=== PATIENT | female | born 1955 | race Caucasian/White ===

== ENCOUNTER 2016-12-02 11:24 | Emergency (ER) | payer OTHER ==
[~2016-12-02] VITALS: Ht 152.4 cm; Wt 76.2 kg
--- NOTE | 2016-12-02 13:04 | RADIOLOGY REPORT ---
EXAMINATION: XR CHEST CLINICAL INFORMATION: 61-year-old woman with cough. COMPARISON: 03/16/2016 chest radiograph TECHNIQUE: 2 views of the chest were obtained. FINDINGS: No significant abnormality is noted involving the heart, lungs, mediastinum, bony thorax or soft tissues. IMPRESSION: Unremarkable examination.
--- NOTE | 2016-12-02 13:07 | ED DYSPNEA/ASTHMA COMPLAINT ---
History of Present Illness General Chief Complaint: Upper Respiratory Sx/Fever Stated Complaint: URI Source: patient, family Exam Limitations: language barrier Vital Signs & Intake/Output Vital Signs & Intake/Output Vital Signs Date Time Temp Pulse Resp B/P Pulse O2 O2 Flow FiO2 Ox Delivery Rate 12/02 1414 95.6 68 16 141/81 95 Room Air 12/02 1338 98 12/02 1335 Room Air 12/02 1141 98.4 64 22 145/84 98 Room Air Allergies Coded Allergies: NO KNOWN ALLERGIES (05/16/12) Reconcile Medications Albuterol Sulfate 2.5 MG/3 ML (0.083 %) VIAL.NEB 1 Vial INH/GREICA Q4P PRN WHEEZING/SHORTNESS OF BREATH Prednisone 10 MG TABLET 0 PO DAILY bronchospasm dAY 1 50MG PO QD, THEN DECREASE BY 10MG DAILY FOR 5 DAYS Triage Note: PT TO ER WITH FAMILY C/C 4 DAY HX OF PRODUCTIVE COUGH AND SOB. USING INHALER W/O RELIEF. SENT FROM [facility] TO R/O PNA. Triage Nurses Notes Reviewed? yes HPI: Patient is a 61-year-old female presents complaining of cough with sputum production, wheezing, shortness of breath, body aches. Symptoms onset approximately 4 days ago. Patient was seen at the [facility] and was prescribed Tamiflu, cough medication, and albuterol inhaler. Patient has been taking these medications along with NyQuil and Advil with minimal improvement. Patient takes 7 mg of prednisone daily for her rheumatoid arthritis, for the past 3 days has been taking 10 mg of prednisone. Cough with brown sputum production. Body aches and generalized weakness or severe. Patient had fevers yesterday and the day before, no fevers today. Denies chest pain, vomiting. (CARMELA GIL) Past History Travel History Traveled to [place] past 21 day No Medical History Any Pertinent Medical History? see below for history Cardiovascular: NONE Gastrointestinal: GERD Musculoskeletal: rheumatoid arthritis Endocrine: hypothyroidism Surgical History Surgical History: non-contributory Psychosocial History What is your primary language Stateless Tobacco Use: Never used Family History Hx Contributory? No (CARMELA GIL) Review of Systems Review of Systems Constitutional: Reports: chills, fever, malaise, weakness. EENTM: Reports: no symptoms. Respiratory: Reports: cough, short of breath, sputum production, wheezing. Cardiovascular: Denies: chest pain. GI: Denies: abdominal pain, vomiting. Genitourinary: Reports: no symptoms. Musculoskeletal: Reports: joint pain, muscle pain. Skin: Reports: no symptoms. Neurological/Psychological: Reports: no symptoms. Hematologic/Endocrine: Reports: no symptoms. Immunologic/Allergic: Reports: no symptoms. (CARMELA GIL) Physical Exam Physical Exam General Appearance: well developed/nourished, alert, awake Head: atraumatic, normal appearance Eyes: Bilateral: normal appearance, PERRL, EOMI. Ears, Nose, Throat: normal pharynx, hearing grossly normal Neck: normal inspection, supple, full range of motion Respiratory: chest non-tender, mild diffuse expiratory wheezing Cardiovascular: regular rate/rhythm, no appreciable murmur Gastrointestinal: soft, non-tender Extremities: normal inspection, normal capillary refill, normal range of motion, no edema Neurologic/Psych: no motor/sensory deficits, awake, alert, oriented x 3, normal gait, normal mood/affect Skin: intact, normal color, warm/dry Lymphatic: no anterior cervical abner Core Measures ACS in differential dx? Yes ASA ordered for poss ACS? No-ACS ruled out Severe Sepsis Present: No Septic Shock Present: No (CARMELA GIL) Progress Differential Diagnosis: asthma, AMI, bronchitis, CHF, COPD, pulmonary embolism, pneumonia, unstable angina Plan of Care: Orders Procedure Date/time Status EKG 12/02 1144 Active 1355: Patient reports improvement after nebulizer treatment. Lungs re-examined, wheezing improved, continues with mild diffuse expiratory wheezing, no respiratory distress. Patient afebrile, nontoxic appearing, oxygen saturation high 90's on room air and chest x-ray unremarkable. Appears stable for discharge and outpatient follow up. Patient provided with prescription for nebulizer machine, prednisone taper and albuterol. (CARMELA GIL) Diagnostic Imaging: Viewed by Me: Radiology Read. Discussed w/RAD: Radiology Read. Initial ED EKG: normal axis, normal intervals, normal p-waves, normal QRS complex, normal sinus rhythm, no ST T wave changes Comments: PATIENT: MATTHIAS OROURKE PRESENT AGE: 61 PATIENT ACCOUNT NO: [id number] : 53 LOCATION: ER ORDERING PHYSICIAN: SAPNA DURAN (TBS) DO SERVICE DATE: 12/02/161143 EXAM TYPE: RAD - XRY-CHEST XRAY, PA AND LATERAL EXAMINATION: XR CHEST CLINICAL INFORMATION: 61-year-old woman with cough. COMPARISON: 03/16/2016 chest radiograph TECHNIQUE: 2 views of the chest were obtained. FINDINGS: No significant abnormality is noted involving the heart, lungs, mediastinum, bony thorax or soft tissues. IMPRESSION: Unremarkable examination. DICTATED BY: ZORAIDA BRITT MD DATE/TIME DICTATED:12/02/161299 TURNTABLE OPERATOR:ABEL DATE/TIME TRANSCRIBED:12/02/161299 CONFIDENTIAL, DO NOT COPY WITHOUT APPROPRIATE AUTHORIZATION. <Electronically signed in Other Vendor System> SIGNED BY: ZORAIDA BRITT MD 12/02/16 1304 (CARMELA GIL) Departure Departure Time of Disposition: 1400 Disposition: HOME OR SELF CARE Condition: Stable Clinical Impression Primary Impression: Viral upper respiratory infection Secondary Impressions: Bronchospasm Referrals: [place] MALDONADO MD (PCP/Family) Additional Instructions: Follow up with Dr. Maldonado this week for further evaluation, call tomorrow for appointment. Drink plenty of fluids and rest. Return to the ER if unable to stay hydrated, breathing worsening or worsening of symptoms. Departure Forms: Customer Survey General Discharge Information Prescriptions: Current Visit Scripts Prednisone 0 PO DAILY #15 TAB dAY 1 50MG PO QD, THEN DECREASE BY 10MG DAILY FOR 5 DAYS Albuterol Sulfate 1 Vial INH/GRECIA Q4P PRN WHEEZING/SHORTNESS OF BREATH #50 Vial (CARMELA GIL) PA/VESSEL CAPTAIN Co-Sign Statement Statement: ED Attending supervision documentation- x I saw and evaluated the patient. I have also reviewed all the pertinent lab results and diagnostic results. I agree with the findings and the plan of care as documented in the PA's/VESSEL CAPTAIN's documentation. [] I have reviewed the ED Record and agree with the PA's/VESSEL CAPTAIN's documentation. [] Additions or exceptions (if any) to the PAs/VESSEL CAPTAIN's note and plan are summarized below: [] (BHAVYA CARVAJAL,NANETTE) Critical Care Note Critical Care Note Critical Care Time: non-applicable (CARMELA GIL)
[2016-12-02] MEDS ORDERED: PREDNISONE10 M2 PO (14:02)
[2016-12-02] MEDS ORDERED: ALBUTEROL2.5 MG/3 M INH/SOL (14:02)
[2016-12-02 14:14] VITALS: BP 141/81
== END 2016-12-02 14:15 ==
LOC: ERH 11:24
DX: J06.9 Acute upper respiratory infection, unspecified (principal); J98.01 Acute bronchospasm
CPT/HCPCS: 1263; 93005; 93010

== ENCOUNTER 2017-01-09 22:15 | Emergency (ER) | payer OTHER ==
[~2017-01-09] VITALS: Ht 162.6 cm; Wt 73.9 kg
[~2017-01-09 22:15] MED LIST: ALBUTEROL2.5 MG/3 M INH/SOL; PREDNISONE10 M2 PO
--- NOTE | 2017-01-09 22:54 | ED GENERAL ADULT ---
History of Present Illness General Chief Complaint: General Adult Stated Complaint: PER SON,"SHE FEELS SOB AND PAIN IN BACK" Source: patient, family Exam Limitations: language barrier Vital Signs & Intake/Output Vital Signs & Intake/Output Vital Signs Date Time Temp Pulse Resp B/P Pulse O2 O2 Flow FiO2 Ox Delivery Rate 01/09 2225 97.1 77 20 150/82 97 Room Air Allergies Coded Allergies: NO KNOWN ALLERGIES (05/16/12) Triage Note: RECEIVED 61 YO FEMALE C/O WEAKNESS STARTED TODAY WITH LEFT UPPER BACK PAIN, WORSE WITH BREATHING. NO C/O CHEST PAIN. Triage Nurses Notes Reviewed? yes Onset: Abrupt Duration: hour(s): (THIS AM) Timing: recent history Injury Environment: home No Modifying Factors: none HPI: 61-year-old female comes into emergency room with complaints of left upper back pain has been going on since this morning when she woke up. Pain is worse with deep breath. Patient reports that she is not short of breath but it hard to take a deep breath because it hurts so much. Denies any chest pain. Denies any vomiting. Denies diaphoresis. Denies any prior history of cardiac problems. She is on atenolol secondary to palpitations. History of thyroidectomy and on Synthroid. Nothing seemed to make the symptoms better. Pain has been continuous since this morning. Got worse this evening. There is no radiation of pain. (SHANDA AMBRIZ) Reconcile Medications Albuterol Sulfate 2.5 MG/3 ML (0.083 %) VIAL.NEB 1 Vial INH/GRECIA Q4P PRN WHEEZING/SHORTNESS OF BREATH Cyclobenzaprine HCl 10 MG TABLET 1 TAB PO TID PRN MUSCLE SPASM Prednisone 10 MG TABLET 0 PO DAILY bronchospasm dAY 1 50MG PO QD, THEN DECREASE BY 10MG DAILY FOR 5 DAYS (WILIAM CARVAJAL,JACEK) Past History Travel History Traveled to [place] past 21 day No Medical History Any Pertinent Medical History? see below for history Neurological: NONE EENT: NONE Cardiovascular: NONE Respiratory: NONE Gastrointestinal: GERD Hepatic: NONE Renal: NONE Musculoskeletal: rheumatoid arthritis Psychiatric: NONE Endocrine: hypothyroidism Blood Disorders: NONE Cancer(s): NONE Surgical History Surgical History: non-contributory Psychosocial History What is your primary language [place] Tobacco Use: Never used Family History Hx Contributory? No (SHANDA AMBRIZ) Review of Systems Review of Systems Constitutional: Reports: no symptoms. EENTM: Reports: no symptoms. Respiratory: Reports: no symptoms. Cardiovascular: Reports: see HPI. GI: Reports: no symptoms. Genitourinary: Reports: no symptoms. Musculoskeletal: Reports: see HPI. Skin: Reports: no symptoms. Neurological/Psychological: Reports: no symptoms. Hematologic/Endocrine: Reports: no symptoms. Immunologic/Allergic: Reports: no symptoms. All Other Systems: Reviewed and Negative (SHANDA AMBRIZ) Physical Exam Physical Exam General Appearance: well developed/nourished, no apparent distress, alert Head: atraumatic, normal appearance Eyes: Bilateral: normal appearance, EOMI. Ears, Nose, Throat: normal pharynx, normal ENT inspection Neck: normal inspection Respiratory: normal breath sounds, no respiratory distress Cardiovascular: regular rate/rhythm Back: TENDERNESS LEFT TRAPEZIUS Extremities: normal inspection, normal range of motion Neurologic/Psych: awake, alert, normal gait Skin: intact, normal color Core Measures ACS in differential dx? Yes CVA/TIA Diagnosis: No Severe Sepsis Present: No Septic Shock Present: No (SHANDA AMBRIZ) Progress Differential Diagnoses I considered the following diagnoses in my evaluation of the patient: Muscle spasm/strain, VA, aortic dissection, pulmonary embolism, shingles, Plan of Care: Orders Procedure Date/time Status XRY-CHEST XRAY, PA AND LATERAL 01/09 2253 Active TROPONIN LEVEL 01/09 2253 Active D-DIMER 01/09 2253 Active COMPREHENSIVE METABOLIC PANEL 01/09 2253 Active CBC WITHOUT DIFFERENTIAL 01/09 2253 Active EKG 01/09 2228 Active Diagnostic Imaging: Viewed by Me: Radiology Read. Discussed w/RAD: Radiology Read. Initial ED EKG: normal intervals, normal p-waves, normal sinus rhythm, rate (69) Hand-Off Endorsed To: NORIS CARVAJAL,YENY Heredia Endorsed Time: 2303 Pending: labs, Xray (SHANDA AMBRIZ) Departure Departure Disposition: STILL A PATIENT Condition: Stable Clinical Impression Primary Impression: Muscle strain Referrals: [place] MALDONADO MD (PCP/Family) Departure Forms: Customer Survey General Discharge Information (SHANDA AMBRIZ) Departure Prescriptions: Current Visit Scripts Cyclobenzaprine HCl 1 TAB PO TID PRN MUSCLE SPASM #30 TAB Ref 1 PA/REVENUE SPECIALIST Co-Sign Statement Statement: ED Attending supervision documentation- [] I saw and evaluated the patient. I have also reviewed all the pertinent lab results and diagnostic results. I agree with the findings and the plan of care as documented in the PA's/REVENUE SPECIALIST's documentation. [X] I have reviewed the ED Record and agree with the PA's/REVENUE SPECIALIST's documentation. [] Additions or exceptions (if any) to the PAs/REVENUE SPECIALIST's note and plan are summarized below: [] (WILIAM CARVAJAL,JACEK) Critical Care Note Critical Care Note Critical Care Time: non-applicable (SHANDA AMBRIZ)
[2017-01-09 23:17] LABS: ABSOLUTE BASOPHIL COUNT 0.1 /CUMM (0.0-0.2); ABSOLUTE EOSINOPHIL COUNT 0.1 /CUMM (0.0-0.7); ABSOLUTE GRANULOCYTE CT 4.4 /CUMM (1.4-6.5); ABSOLUTE LYMPH COUNT 2.6 /CUMM (1.2-3.4); ABSOLUTE MONOCYTE COUNT 0.5 /CUMM (0.10-0.60); BASOPHIL % 0.8 % (0.0-2.0); EOSINOPHIL % 1.4 % (0-5); GRANULOCYTE % 57.3 % (42.2-75.2); HEMATOCRIT 37.3 % (37-47); MEAN CORPUSCULAR HGB 29.3 PG (27.0-31.0); MEAN CORPUSCULAR HGB CONC 33.7 G/DL (33.0-37.0); MEAN PLATELET VOLUME 9.3 FL (7.4-10.4); PLATELET COUNT 234 /CUMM (130-400); RBC DISTRIBUTION WIDTH 13.6 % (11.5-14.5); RED BLOOD CELL CT 4.29 /CUMM (4.20-5.40); WHITE BLOOD CELL COUNT 7.6 /CUMM (4.8-10.8)
--- NOTE | 2017-01-09 23:26 | RADIOLOGY REPORT ---
EXAMINATION: XR CHEST CLINICAL INFORMATION: Posterior back pain. COMPARISON: Chest x-ray 12/02/2016 TECHNIQUE: 2 views of the chest were obtained. FINDINGS: Subpleural bleb measuring 6.5 x 2.5 cm at left lung apex unchanged since prior study. Lungs are clear. No pleural effusion. No pneumothorax. Heart size normal. Cardiac and mediastinal contours are normal. No pulmonary vascular congestion. IMPRESSION: No acute abnormality of the chest.
[2017-01-10] MEDS ORDERED: CYCLOBENZAPRINE10 M1 PO (00:21)
[2017-01-10 00:27] VITALS: BP 136/72
== END 2017-01-10 00:31 ==
LOC: ERH 22:15
PROVIDERS: Physician Assistant Medical
DX: S29.012A Strain of muscle and tendon of back wall of thorax, initial encounter (principal); E03.9 Hypothyroidism, unspecified
CPT/HCPCS: 93005; 93010